=== PATIENT | male | born 1975 | race Caucasian/White ===

== ENCOUNTER 2016-07-02 09:23 | Emergency (ER) | payer MEDICARE, MEDICAID ==
[~2016-07-02 09:23] MED LIST: ABILIFY10 M1 PO; ABILIFY20 MG PO; AUGMENTIN 875-11 TAB PO; BENZTROPINE MESY1 M1 PO; BUSPIRONE HCL10 M2 PO; CIPRO500 M2 PO; CLONAZEPAM1 MG PO; CLONIDINE HCL0.1 MG PO; COGENTIN PO; COLACE100 M1 PO; DEPAKOTE ER500 M1 PO; FISH OIL 11000 MG/CA PO; FLOMAX0.4 M1 PO; HYDROCODON-ACE1 EA16 PO; KEFLEX500 MG PO; KLONOPIN1 M1 PO; LAMICTAL100 M2 PO; LASIX20 M1 PO; LITHIUM; LITHIUM CARBON300 M1 PO; LITHIUM CARBON300 M2 PO; MELATIN3 MG PO; MINIPRESS2 M1 PO; MULTIPLE VITAM1 EAC3 PO; NORCO 5-325 TA1 EACH PO; NORCO 5/325 TAB1 TAB PO; OXYCODONE/APAP PO; PAROXETINE HCL20 MG PO; PAROXETINE PO; PERCOCET 5-3251 EACH PO; PRAZOSIN HCL1 M2 PO; PROZAC20 M3 PO; PROZAC20 MG PO; PROZAC40 M1 PO; PROZAC40 MG PO; SEROQUEL100 M2 PO; SEROQUEL100 MG PO; SEROQUEL200 MG PO; SEROQUEL25 M2 PO; TRAZODONE HCL100 M1 PO; TYLENOL325 M2 PO; VISTARIL50 M1 PO; ZOFRAN4 M2 PO
[2016-07-02] MEDS ORDERED: NORCO 5-325 TA1 EACH PO (10:46)
== END 2016-07-02 11:06 ==
LOC: EDMED 09:23
DX: S80.02XA Contusion of left knee, initial encounter (principal); M70.52 Other bursitis of knee, left knee; F31.9 Bipolar disorder, unspecified; F17.210 Nicotine dependence, cigarettes, uncomplicated; Z87.442 Personal history of urinary calculi; V49.50XA Passenger injured in collision with unspecified motor vehicles in traffic accident, initial encounter; Y92.410 Unspecified street and highway as the place of occurrence of the external cause